=== PATIENT | male | born 1995 | race Caucasian/White ===

== ENCOUNTER 2017-08-23 17:14 | Emergency (ER) | payer BC ==
[2017-08-23 17:29] VITALS: RESP 18
--- NOTE | 2017-08-23 17:53 | ED ---
Chest Pain HPI - General Chief Complaint: Chest Pain Stated Complaint: Ches pain Time Seen by Provider: 08/23/17 17:35 Source: patient Mode of arrival: ambulatory Limitations: no limitations - History of Present Illness Initial Comments: Patient is a 22-year-old male presenting for chest pain. 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 Since that time, he has been having chest pressure that has been constant without radiation or modifying factors. It is not associated with nausea/vomiting/ diarrhea. Pt also denies any prolonged periods of immobility, CA, DVT/PE, estrogen use, or recent surgery. He was advised to come to the ER for further evaluation. He states he also works out daily and that this feels slightly different than a musculoskeletal strain. He also denies any illicit drug use. - Related Data Home Medications Medication Instructions Recorded Confirmed No Known Home Medications [No 08/23/17 08/23/17 Known Home Medications] Allergies Allergy/AdvReac Type Severity Reaction Status Date / Time No Known Allergies Allergy Verified 08/23/17 17:29 Review of Systems ROS Statement: Those systems with pertinent positive or pertinent negative responses have been documented in the HPI. Constitutional: Negative for chills, fatigue and fever. HENT: Negative for congestion. Respiratory: Negative for chest tightness, shortness of breath and wheezing. Negative for cough Cardiovascular: Negative for palpitations. Positive for chest pain Gastrointestinal: Negative for abdominal pain. Negative for abdominal distention , diarrhea, nausea and vomiting. Genitourinary: Negative for dysuria. Musculoskeletal: Negative for back pain, neck pain and neck stiffness. Skin: Negative for color change. Neurological: Negative for dizziness, speech difficulty, weakness and light- headedness. Psychiatric/Behavioral: Negative for agitation and confusion. The patient is not nervous/anxious. ROS Other: All systems not noted in ROS Statement are negative. EKG Findings - EKG Comments: EKG Findings:: EKG shows normal sinus rhythm with a rate of 62 bpm, NE interval 122, QRS 92, QTC 414. There is no significant ST depressions or elevations. Past Medical History Past Medical History: No Reported History History of Any Multi-Drug Resistant Organisms: None Reported Additional Past Surgical History / Comment(s): nasel surg Past Psychological History: No Psychological Hx Reported Smoking Status: Never smoker Past Alcohol Use History: Rare Past Drug Use History: None Reported General Exam - General Exam Comments Initial Comments: Constitutional: Pt is oriented to person, place, and time. Pt appears well- developed and well-nourished. No distress. HENT: Head: Normocephalic and atraumatic. Eyes: EOM are normal. Neck: Normal range of motion. Neck supple. Cardiovascular: Normal rate, regular rhythm, S1 normal, S2 normal and normal heart sounds. Exam reveals no gallop and no friction rub. No murmur heard. Pulmonary/Chest: Effort normal and breath sounds normal. No tachypnea and no bradypnea. No respiratory distress. No wheezes or rales noted. Abdominal: Soft. Bowel sounds are normal. Pt exhibits no shifting dullness, no distension, no pulsatile liver, no fluid wave, no abdominal bruit and no ascites. There is no tenderness. There is no rigidity, no rebound, no guarding, no tenderness at McBurney's point and negative Kasper's sign. Musculoskeletal: Normal range of motion. Neurological: Pt is alert and oriented to person, place, and time. No cranial nerve deficit. Skin: Skin is warm and dry. No rash noted. Pt is not diaphoretic. No erythema. No pallor. Psychiatric: Pt has a normal mood and affect. Pt behavior is normal. Thought content normal. Limitations: no limitations Course Vital Signs 08/23/17 17:25 Temperature 99.0 F Pulse Rate 75 Respiratory 18 Rate Blood Pressure 136/71 O2 Sat by Pulse 100 Oximetry Chest Pain MDM - MDM Lab results showed no evidence of elevated troponin and kidney function was preserved. There is mild elevation of CPK but this is to be suspected as the patient does do a lot of physical exercise. Additionally, chest x-ray showed no evidence of acute pathology and EKG was unremarkable. It was explained that while there does not appear to be an emergent process, the etiology of the symptoms are still unclear but possibly related to muscle strength and may need further workup as an outpatient if symptoms continue. Additionally, d-dimer was not performed because the patient is low risk and was PERC negative. Explained all labs and diagnostic test results and that we will discharge the patient home and patient is to follow up with PCP in 1-2 days and return to the ED if symptoms worsen. Pt is agreeable to plan. Disposition Clinical Impression: Chest pain Disposition: HOME SELF-CARE Condition: Good Instructions: Chest Pain (ED) Is patient prescribed a controlled substance at d/c from ED?: No Referrals: None,Stated [Primary Care Provider] - 1-2 days Time of Disposition: 18:45
[2017-08-23 18:05] LABS: Basophils % (A) 0 %; Eosinophils # (A) 0.2 k/uL (0-0.7); Eosinophils % (A) 2 %; HCT 46.2 % (39.0-53.0); HGB 15.8 gm/dL (13.0-17.5); Lymphocytes # (A) 2.6 k/uL (1.0-4.8); Lymphocytes % (A) 32 %; MCHC 34.2 g/dL (31.0-37.0); MCV 87.8 fL (80.0-100.0); Mean Platelet Volume 7.3; Monocytes # (A) 0.5 k/uL (0-1.0); Monocytes % (A) 6 %; Neutrophils # (A) 4.7 k/uL (1.3-7.7); Neutrophils % (A) 57 %; Platelet Count 208 k/uL (150-450); RBC 5.26 m/uL (4.30-5.90); RDW 12.1 % (11.5-15.5); WBC 8.2 k/uL (3.8-10.6)
[2017-08-23 18:15] LABS: ALT 37 U/L (21-72); AST 31 U/L (17-59); Albumin 4.6 g/dL (3.5-5.0); Alkaline Phosphatase 86 U/L (38-126); Anion Gap 16 mmol/L; Blood Urea Nitrogen 23 mg/dL (9-20); Calcium 9.3 mg/dL (8.4-10.2); Carbon Dioxide 25 mmol/L (22-30); Chloride 105 mmol/L (98-107); Creatine Kinase 232 U/L (55-170); Glucose 94 mg/dL (74-99); Magnesium 2.1 mg/dL (1.6-2.3); Potassium 4.3 mmol/L (3.5-5.1); Sodium 146 mmol/L (137-145); Total Bilirubin 0.3 mg/dL (0.2-1.3); Total Protein 7.2 g/dL (6.3-8.2)
--- NOTE | 2017-08-23 18:15 | XR ---
EXAMINATION TYPE: XR chest 2V DATE OF EXAM: 08/23/2017 COMPARISON: None HISTORY: 22-year-old male with chest pain TECHNIQUE: PA and lateral views FINDINGS: Heart is normal size. Aorta and pulmonary vasculature within normal limits. No consolidation or pleur al effusion. IMPRESSION: No acute cardiopulmonary process.
[2017-08-23 19:15] VITALS: BP 128/67; PULSE 64; TEMP 98
== END 2017-08-23 19:06 | disposition home or self-care (01) ==
LOC: EC 17:14
DX: R07.9 Chest pain, unspecified (principal); R74.8 Abnormal levels of other serum enzymes
CPT/HCPCS: 36415; 71046; 80053; 82550; 83735; 84484; 85025; 93005; 99285

== ENCOUNTER 2024-08-31 18:02 | Observation (INO) | payer BC ==
--- NOTE | 2024-08-31 19:09 | ED ---
General Adult HPI - General Chief complaint: Neuro Symptoms/Deficit Stated complaint: Facial/L arm numbness Time Seen by Provider: 08/31/24 18:37 Source: patient Mode of arrival: ambulatory Limitations: no limitations - History of Present Illness Initial comments: Patient is a previously healthy 29-year-old male presenting today for left-sided facial numbness and left arm numbness. Symptoms started on Friday. He had associated headache at the time that has since resolved. Symptoms began with left-sided facial numbness and progressed to include his left arm yesterday. 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 Yesterday he went to his chiropractor's office who did neck adjustments and patient had no change in his symptoms. His headache has since resolved. He also endorses intermittent dizziness. He states he had similar symptoms about 1 year ago, had a CT brain performed at [facility], was ultimately negative and he was discharged home. His symptoms resolved spontaneously. He never followed up with a neurologist and has not had an MRI performed. Patient denies vision changes, slurred speech, other focal numbness or weakness, current headache or dizziness, chest pain, shortness of breath, fevers or chills. States his neck does feel "stiff". No family history of CVAs, MS or ACS. Patient has no history of similar. He is currently on testosterone supplementation. - Related Data Home Medications Medication Instructions Recorded Confirmed No Known Home Medications 08/23/17 08/23/17 Allergies Allergy/AdvReac Type Severity Reaction Status Date / Time No Known Allergies Allergy Verified 08/31/24 18:08 Review of Systems ROS Statement: Those systems with pertinent positive or pertinent negative responses have been documented in the HPI. ROS Other: All systems not noted in ROS Statement are negative. Past Medical History Past Medical History: No Reported History History of Any Multi-Drug Resistant Organisms: None Reported Additional Past Surgical History / Comment(s): nasel surg Past Psychological History: No Psychological Hx Reported Past Alcohol Use History: Rare Past Drug Use History: None Reported General Exam - General Exam Comments Initial Comments: PE: CONSTITUTIONAL: No apparent distress, well appearing SKIN: Warm, dry, no jaundice, hives or petechiae EYES: Pupils are equally round, extraocular movements intact without nystagmus, clear conjunctiva, non-icteric sclera HENT: Normocephalic, atraumatic, moist mucus membranes, oropharynx clear without exudates, no tympanic erythema, TMs are pearly vasquez without effusions NECK: , Full range of motion, normal appearance PULMONARY: Clear to auscultation without wheezes, rhonchi, or rales, normal excursion, no accessory muscle use and no stridor CARDIOVASCULAR: Regular rate, rhythm, normal S1 and S2. No appreciated murmurs, rubs or gallops. Strong radial pulses with intact distal perfusion. No lower extremity edema GASTROINTESTINAL: Soft, active bowel sounds throughout, non-tender, non-diste nded, no palpable masses, no rebound or guarding. No hepatosplenomegaly GENITOURINARY: MUSCULOSKELETAL: Extremities have no gross deformity, no edema, redness, or swelling. NEUROLOGIC:_a/o x 3, GCS 15, normal mentation and speech. Moves all extremities x 4 without motor or sensory deficit, cranial nerves: II (visual iglesias without defects), III, IV and (extraocular movements are intact, pupils are equal with normal reaction to light), V jaw opening, decree sensation to light touch of the 2nd and 3rd branches of the 5th cranial nerve, VII (no facial droop forehead wrinkling intact), IX and X (normal palate movement, midline uvula, normal voice), XI (symmetrical shoulder shrug and lateral head rotation against resistance), XII (midline tongue protrusion). Questionable slight weakness in LUE compared to RUE, thought motor strength is 5/5 in all extremities. No abnormal movements. Normal muscle tone. Decreased sensation to light touch of the left upper extremity, equal sensation in the bilateral lower extremities. No cerebellar signs ([id number], [id number], and rapid alternating movements are normal) PSYCHIATRIC:_normal mood and affect, thought process is clear and linear Limitations: no limitations Course Vital Signs 08/31/24 08/31/24 18:05 20:57 Temperature 98.1 F Pulse Rate 106 H 69 Respiratory 18 18 Rate Blood Pressure 148/81 134/90 O2 Sat by Pulse 98 98 Oximetry EKG Findings - EKG Comments: EKG Findings:: Sinus rhythm, rate 84 bpm intervals within acceptable limits, normal axis, no ST elevations or depressions no arrhythmia Medical Decision Making - Medical Decision Making Was pt. sent in by a medical professional or institution (, PA, SENIOR ENVIRONMENTAL ENGINEER, urgent care, hospital, or residential...) When possible be specific @ -No Did you speak to anyone other than the patient for history (EMS, parent, family, police, friend...)? What history was obtained from this source @ -No Did you review nursing and triage notes (agree or disagree)? Why? @ -I reviewed and agree with nursing and triage notes Were old charts reviewed (outside hosp., previous admission, EMS record, old EKG, old radiological studies, urgent care reports/EKG's, residential records)? Report findings @ -Medical records reviewed-reviewed CT brain performed in 2019 showed no acute process. At that time was done for headache and dizziness Differential Diagnosis (chest pain, altered mental status, abdominal pain women, abdominal pain men, vaginal bleeding, weakness, fever, dyspnea, syncope, headache, dizziness, GI bleed, back pain, seizure, CVA, palpatations, mental health, musculoskeletal)? @Differential CVA Ischemic stroke, hemorrhagic stroke, brain tumor, MS, atypical migraine, Wernicke's encephalopathy, seizure, multiple sclerosis, meningitis, encephalitis, hypoglycemia, Guillain-Denise, electrolytes disturbance, myasthenia gravis.... This is not meant to be an all-inclusive list EKG interpreted by me (3pts min.). @ -As above X-rays interpreted by me (1pt min.). @ -[Personally reviewed chest x-ray see no evidence of cardiomegaly, consolidations or other acute process, agree with radiologist interpretation CT interpreted by me (1pt min.). @Personally reviewed CT brain I see no evidence of hemorrhage or mass effect, I agree with radiologist interpretation U/S interpreted by me (1pt. min.). @ -None done What testing was considered but not performed or refused? (CT, X-rays, U/S, labs)? Why? @CTA was considered however patient declined CTA, hoping to avoid excessive radiation, as patient symptoms began prior to chiropractic adjustments I do not suspect arterial injury at this time, and symptoms have been ongoing for greater than 24 hours, I feel after CT brain if negative, MRI would be appropriate What meds were considered but not given or refused? Why? @ -None Did you discuss the management of the patient with other professionals (professionals i.e. , PA, SENIOR ENVIRONMENTAL ENGINEER, lab, RT, psych nurse, social services director, condenser cleaner, teacher, chief legal officer, registered nurse hh case manager)? Give summary @ -No Was smoking cessation discussed for >3mins.? @ -No Was critical care preformed (if so, how long)? @ -No Were there social determinants of health that impacted care today? How? (Homel essness, low income, unemployed, alcoholism, drug addiction, transportation, low edu. Level, literacy, decrease access to med. care, custodial, rehab)? @ -No Was there de-escalation of care discussed even if they declined (Discuss DNR or withdrawal of care, Hospice)? @ -No What co-morbidities impacted this encounter? (DM, HTN, Smoking, COPD, CAD, Cancer, CVA, ARF, Chemo, Hep., AIDS, mental health diagnosis, sleep apnea, morbid obesity)? @ -None Was patient admitted / discharged? Hospital course, mention meds given and route, prescriptions, significant lab abnormalities, going to OR and other [facility] info. @ -Admission- patient is a pleasant 29-year-old woman presenting today for 2 days of left-sided facial numbness and left upper extremity numbness. Patient only tachycardic on arrival, mildly hypertensive with blood pressure 148/81, otherwise vital signs within acceptable limits. Exam significant for decreased sensation to light touch of the 2nd and 3rd branches of the 5th cranial nerve, no facial droop appreciated, sensation is intact along the first branch, slight decrease sensation in the left upper extremity, questionable slight decrease in strength in the LUE. Discussed with patient plan for CT brain, consider CTA however patient requests not to have CTA performed as he has had multiple CTs in the past and he would prefer an MRI. I discussed with him that MRI is not imme diately available in the ER however should start with a CT brain to rule out hemorrhage or mass effect and could proceed to MRI as indicated. Patient agreeable plan of care. Comprehensive labs chest x-ray, CT brain obtained ordered. Labs and imaging reviewed. Grossly within normal limits. Abnormal values not concerning for acute pathology related to presenting complaint. Reflect hemoconcentration but no acute process. IV fluids ordered .CT brain negative for acute process. Due to persistent symptoms, will admit for MRI and neurology evaluation. Pt agreeable with POC. Case discussed with ADDISON Robertson, kindly accepts pt for admission. Undiagnosed new problem with uncertain prognosis? @ -No Drug Therapy requiring intensive monitoring for toxicity (Heparin, Nitro, Insulin, Cardizem)? @ -No Were any procedures done? @ -No Diagnosis/symptom? Left face numbness, left upper extremity numbness Acute, or Chronic, or Acute on Chronic? Acute Uncomplicated (without systemic symptoms) or Complicated (systemic symptoms)? @Complicated Side effects of treatment? @ -No Exacerbation, Progression, or Severe Exacerbation? @ -No Poses a threat to life or bodily function? How? (Chest pain, USA, CA, pneumonia, PE, COPD, DKA, ARF, appy, cholecystitis, CVA, Diverticulitis, Homicidal, Suicidal, threat to staff... and all critical care pts) @ -Potentially secondary to emergent etiology such as recent CVA or new onset MS - Lab Data Result diagrams: 08/31/24 19:46 08/31/24 19:46 Lab Results 08/31/24 08/31/24 08/31/24 Range/Units 19:46 19:46 19:46 WBC 10.25 H (4.50-10.00) 10*3/uL RBC 5.74 H (4.40-5.60) 10*6/uL Hgb 18.0 H (13.0-17.0) g/dL Hct 51.1 H (39.6-50.0) % MCV 89.0 (80.0-97.0) fL MCH 31.4 (27.0-32.0) pg MCHC 35.2 (32.0-37.0) g/dL Plt Count 243 (140-440) 10*3/uL MPV 10.0 (9.5-12.2) fL Immature Gran % (Auto) 0.2 % Neutrophils % 62.1 % Lymphocytes % 27.7 % Monocytes % 8.7 % Eosinophils % 0.7 % Basophils % 0.6 % Immature Gran # 0.02 (0.00-0.04) 10*3/uL Neutrophils # 6.37 (1.80-7.70) 10*3/uL Lymphocytes # 2.84 (0.90-5.00) 10*3/uL Monocytes # 0.89 (0.20-1.00) 10*3/uL Eosinophils # 0.07 (0.04-0.35) 10*3/uL Basophils # 0.06 (0.00-0.10) 10*3/uL PT 11.0 (10.0-12.5) sec INR 1.0 (<1.2) APTT 28.1 (22.0-30.0) sec Sodium 139 (137-145) mmol/L Potassium 4.3 (3.5-5.1) mmol/L Chloride 101 (98-107) mmol/L Carbon Dioxide 25 (22-30) mmol/L Anion Gap 13 mmol/L BUN 18 (9-20) mg/dL Creatinine 0.96 (0.66-1.25) mg/dL Est GFR (CKD-EPI)AfAm >90 (>60 ml/min/1.73 sqM) Est GFR (CKD-EPI)NonAf >90 (>60 ml/min/1.73 sqM) Glucose 82 (74-99) mg/dL Calcium 9.6 (8.4-10.2) mg/dL Total Bilirubin 0.5 (0.2-1.3) mg/dL AST 38 (17-59) U/L ALT 45 (4-49) U/L Alkaline Phosphatase 63 (38-126) U/L Creatine Kinase 198 H (55-170) U/L Troponin I (0.000-0.034) ng/mL Total Protein 7.4 (6.3-8.2) g/dL Albumin 4.4 (3.5-5.0) g/dL 08/31/24 Range/Units 19:46 WBC (4.50-10.00) 10*3/uL RBC (4.40-5.60) 10*6/uL Hgb (13.0-17.0) g/dL Hct (39.6-50.0) % MCV (80.0-97.0) fL MCH (27.0-32.0) pg MCHC (32.0-37.0) g/dL Plt Count (140-440) 10*3/uL MPV (9.5-12.2) fL Immature Gran % (Auto) % Neutrophils % % Lymphocytes % % Monocytes % % Eosinophils % % Basophils % % Immature Gran # (0.00-0.04) 10*3/uL Neutrophils # (1.80-7.70) 10*3/uL Lymphocytes # (0.90-5.00) 10*3/uL Monocytes # (0.20-1.00) 10*3/uL Eosinophils # (0.04-0.35) 10*3/uL Basophils # (0.00-0.10) 10*3/uL PT (10.0-12.5) sec INR (<1.2) APTT (22.0-30.0) sec Sodium (137-145) mmol/L Potassium (3.5-5.1) mmol/L Chloride (98-107) mmol/L Carbon Dioxide (22-30) mmol/L Anion Gap mmol/L BUN (9-20) mg/dL Creatinine (0.66-1.25) mg/dL Est GFR (CKD-EPI)AfAm (>60 ml/min/1.73 sqM) Est GFR (CKD-EPI)NonAf (>60 ml/min/1.73 sqM) Glucose (74-99) mg/dL Calcium (8.4-10.2) mg/dL Total Bilirubin (0.2-1.3) mg/dL AST (17-59) U/L ALT (4-49) U/L Alkaline Phosphatase (38-126) U/L Creatine Kinase (55-170) U/L Troponin I <0.012 (0.000-0.034) ng/mL Total Protein (6.3-8.2) g/dL Albumin (3.5-5.0) g/dL Disposition Clinical Impression: Left sided numbness Disposition[facility] Condition: Good Referrals: Nonstaff,Physician [Primary Care Provider] - 1-2 days
--- NOTE | 2024-08-31 19:38 | CT ---
EXAMINATION TYPE: CT brain wo con DATE OF EXAM: 08/31/2024 7:28 PM COMPARISON: None. CLINICAL INDICATION: Male, 29 years old with history of left facial numb. left arm numbness x 2 days, left sided facial numbness TECHNIQUE: CT of the brain is performed utilizing 3 mm thick sections through the posterior fossa and 3 mm thick sections through the remaining calvarium. Study is performed within 24 hours of arrival to the hospital. Contrast used: mL of , (none if empty) CT DLP: 1172.4 mGycm, Automated exposure control for dose reduction was used. FINDINGS: No abnormal hyperdensity is present to suggest an acute intracranial hemorrhage. No mass lesion is evident. No acute infarcts are evident. Ventricles and sulci are appropriate for the patient age. Paranasal sinuses and mastoid air cells within the [id number] are clear. IMPRESSION: 1. No acute intracranial process. Follow up MRI can be performed as clinically indicated. [facility], Workstation: [facility], 08/31/2024 7:36 PM
[2024-08-31 19:59] LABS: Basophils # (A) 0.06 10*3/uL (0.00-0.10); Basophils % (A) 0.6 %; Eosinophils # (A) 0.07 10*3/uL (0.04-0.35); Eosinophils % (A) 0.7 %; HCT 51.1 % (39.6-50.0); Lymphocytes # (A) 2.84 10*3/uL (0.90-5.00); Lymphocytes % (A) 27.7 %; MCH 31.4 pg (27.0-32.0); MCHC 35.2 g/dL (32.0-37.0); Monocytes # (A) 0.89 10*3/uL (0.20-1.00); Monocytes % (A) 8.7 %; Neutrophils # (A) 6.37 10*3/uL (1.80-7.70); Neutrophils % (A) 62.1 %; Platelet Count 243 10*3/uL (140-440); RBC 5.74 10*6/uL (4.40-5.60); RDW 12.3 % (11.5-14.5); WBC 10.25 10*3/uL (4.50-10.00)
--- NOTE | 2024-08-31 20:14 | XR ---
EXAMINATION TYPE: XR chest 2V DATE OF EXAM: 08/31/2024 8:06 PM COMPARISON: 08/23/2017 CLINICAL INDICATION: Male, 29 years old with history of stroke eval, TECHNIQUE: XR chest 2V view(s) obtained. FINDINGS: The heart size is normal. The pulmonary vasculature is normal. The lungs are clear. IMPRESSION: 1. No acute pulmonary process. [facility], Workstation: [facility], 08/31/2024 8:12 PM
[2024-08-31 20:18] LABS: Glucose 82 mg/dL (74-99); Partial Thromboplastin Time 28.1 sec (22.0-30.0)
[2024-08-31 20:19] LABS: ALT 45 U/L (4-49); AST 38 U/L (17-59); African American GFR (CKD) >90 (>60 ml/min/1.73 sqM); Albumin 4.4 g/dL (3.5-5.0); Alkaline Phosphatase 63 U/L (38-126); Anion Gap 13 mmol/L; Blood Urea Nitrogen 18 mg/dL (9-20); Calcium 9.6 mg/dL (8.4-10.2); Carbon Dioxide 25 mmol/L (22-30); Chloride 101 mmol/L (98-107); Creatine Kinase 198 U/L (55-170); Non-African American GFR(CKD) >90 (>60 ml/min/1.73 sqM); Potassium 4.3 mmol/L (3.5-5.1); Sodium 139 mmol/L (137-145); Total Bilirubin 0.5 mg/dL (0.2-1.3); Total Protein 7.4 g/dL (6.3-8.2)
[2024-08-31] MEDS ORDERED: ONDANSETRON 4 MG/2 ML VIAL IVP PRN (21:49)
[2024-08-31] MEDS ORDERED: MAG HYDROX/AL HYDROX/SIMETH 30 ML CUP PO PRN (21:49)
[2024-08-31] MEDS ORDERED: ACETAMINOPHEN TAB 325 MG TAB PO PRN (21:49)
[2024-08-31] MEDS ORDERED: NALOXONE 0.4 MG/ML 1 ML VIAL IV PRN (21:49)
[2024-08-31] MEDS ORDERED: traMADol 50 MG TAB PO PRN (21:49)
[2024-08-31] MEDS ORDERED: MELATONIN 3 MG TABLET PO PRN (21:49)
[2024-08-31] MEDS: SODIUM CHLORIDE 0.9% 1,000 ML IV SCH (22:19)
[2024-09-01] MEDS: FAMOTIDINE 20 MG TAB PO SCH (08:54)
--- NOTE | 2024-09-01 12:51 | P.HPIM ---
History of Present Illness Patient is a pleasant 29-year-old male came in with complaints of left lower facial numbness and left arm numbness unknown whether patient has some weakness patient had issues with the coordination in the left hand as well as vp organizational development stre ngth problem in the left. CT of the head that was done at [facility] did not show any significant abnormality. Patient denied any family history of premature coronary artery disease or carotid artery disease or prevascular disease in the family patient has a history of sciatica because of which he has some chronic numbness and tingling in lower extremities. Brain CT and chest x- ray are essentially within normal limits. Patient symptoms started on Friday resolved at this time. Patient still has on and off symptoms. Patient also has history of peripheral vertigo REVIEW OF SYSTEMS: All other systems are negative except those mentioned in the HPI PHYSICAL EXAMINATION: GENERAL: The patient is alert and oriented x3, not in any acute distress. Well developed, well nourished. HEENT: Pupils are round and equally reacting to light. EOMI. No scleral icterus. No conjunctival pallor. Normocephalic, atraumatic. No pharyngeal erythema. No thyromegaly. CARDIOVASCULAR: S1 and S2 present. No murmurs, rubs, or gallops. PULMONARY: Chest is clear to auscultation, no wheezing or crackles. ABDOMEN: Soft, nontender, nondistended, normoactive bowel sounds. No palpable organomegaly. MUSCULOSKELETAL: No joint swelling or deformity. EXTREMITIES: No cyanosis, clubbing, or pedal edema. NEUROLOGICAL: Gross neurological examination did not reveal any focal deficits. SKIN: No rashes. Assessment and plan -Symptoms of facial and left arm tingling numbness: Clinically cannot rule out TIA/stroke. Patient will undergo MRI to rule out any stroke. Will also obtain a lipid panel - Elevated hemoglobin/hematocrit secondary to hemoconcentration from dehydration or testosterone injections -Peripheral vertigo presently not symptomatic DVT prophylaxis: Early ambulation Past Medical History Past Medical History: No Reported History History of Any Multi-Drug Resistant Organisms: None Reported Additional Past Surgical History / Comment(s): nasel surg Past Psychological History: No Psychological Hx Reported Past Alcohol Use History: Rare Past Drug Use History: None Reported Medications and Allergies Home Medications Medication Instructions Recorded Confirmed Type No Known Home Medications 08/23/17 09/01/24 History Allergies Allergy/AdvReac Type Severity Reaction Status Date / Time No Known Allergies Allergy Verified 09/01/24 09:14 Physical Exam Vitals: Vital Signs Temp Pulse Resp BP Pulse Ox 09/01/24 06:16 74 16 120/84 99 09/01/24 02:00 70 18 144/66 99 08/31/24 20:57 69 18 134/90 98 08/31/24 18:05 98.1 F 106 H 18 148/81 98 Intake and Output 08/31/24 09/01/24 09/01/24 22:59 06:59 14:59 Other: Weight 95.254 kg Results CBC & Chem 7: 08/31/24 19:46 08/31/24 19:46 Labs: Abnormal Lab Results - Last 24 Hours (Table) 08/31/24 08/31/24 Range/Units 19:46 19:46 WBC 10.25 H (4.50-10.00) 10*3/uL RBC 5.74 H (4.40-5.60) 10*6/uL Hgb 18.0 H (13.0-17.0) g/dL Hct 51.1 H (39.6-50.0) % Creatine Kinase 198 H (55-170) U/L
--- NOTE | 2024-09-01 16:57 | P.CNNES ---
History of Present Illness Consult date: 09/01/24 Requesting physician: Yuliet Schultz Reason for Consult: left sided weakness History of Present Illness: This is a 29-year-old gentleman who presents emergency department because of left facial numbness with left upper extremity weakness predominantly in the hand. Patient is accompanied with his . According the patient his symptoms began this past Friday around 6 PM and he had left facial numbness around the cheek region and he also had a mild headache over the left frontal area and he could not describe the headache but stated it was mild and it was 3/10 and could not tell me if the headache started first or the facial numbness started first. Patient took Motrin then he slept then woke up the next day and he was doing well then again he experienced the left facial numbness without any headache. He also noticed that his left hand fine motor movement was off. Then this seems his symptoms resolved then again he had symptoms again yesterday so he came to the hospital. Patient has chronic ongoing dizziness for the last 8 years and he followed up with ENT as an outpatient. Patient denies any history of stroke, TIA, multiple sclerosis. Denies currently any numbness or weakness. He feels back to baseline. Denies any history of seizure. Denies any family history of stroke or seizure or multiple sclerosis. He denies being on any antiplatelet or anticoagulation. He does have a history of nicotine use and he chews tobacco but it seems that he went to to the nonnicotine route. Denies any illicit drug use or alcohol use. He does take testosterone and it seems that he has low testosterone level. 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 Some of the workup during this hospital visit consisted of: Hemoglobin is 18.0 and hematocrit is 51.1 I reviewed the rest of the lab workup CT of the head is reported as no acute intracranial process. I personally reviewed the CT and agree with the report. Review of Systems As per HPI. Past Medical History Past Medical History: No Reported History History of Any Multi-Drug Resistant Organisms: None Reported Additional Past Surgical History / Comment(s): nasel surg Past Psychological History: No Psychological Hx Reported Past Alcohol Use History: Rare Past Drug Use History: None Reported Medications and Allergies Home Medications Medication Instructions Recorded Confirmed Type No Known Home Medications 08/23/17 09/01/24 History Allergies Allergy/AdvReac Type Severity Reaction Status Date / Time No Known Allergies Allergy Verified 09/01/24 09:14 Physical Examination - Vital Signs Vital Signs: Vital Signs Temp Pulse Resp BP Pulse Ox 09/01/24 13:49 64 16 145/76 99 09/01/24 06:16 74 16 120/84 99 09/01/24 02:00 70 18 144/66 99 08/31/24 20:57 69 18 134/90 98 08/31/24 18:05 98.1 F 106 H 18 148/81 98 GENERAL: The patient is lying in bed and is not in acute distress. NEUROLOGICAL: Higher mental function: The patient is awake, alert, oriented to self, place and time. Patient is following commands. No aphasia and no neglect. Cranial nerves: The pupils are round, equal and reactive to light and accommodation. Visual iglesias are full to confrontation throughout. Extraocular movement is intact no nystagmus is noted. Facial sensation is normal to touch throughout. The facial strength is normal throughout. Hearing is normal bilaterally to hand rub. Tongue is midline and moved [id number] without any difficulty. No dysarthria is noted. Shoulder shrug is normal bilaterally. Motor: The strength is 5 over 5 throughout. Normal tone and bulk. Cerebellum: Normal finger to nose heel to owens bilaterally. Sensation: Sensation is normal to touch throughout. Reflexes (right/left): 2+ throughout. Plantars are downgoing bilaterally. Results - Laboratory Findings CBC and BMP: 08/31/24 19:46 08/31/24 19:46 Abnormal Lab Findings: Abnormal Labs 08/31/24 08/31/24 19:46 19:46 WBC 10.25 H RBC 5.74 H Hgb 18.0 H Hct 51.1 H Creatine Kinase 198 H Assessment and Plan Assessment: This is a 29-year-old gentleman who presents emergency department because of left facial numbness, with some issues with dexterity of left hand that is intermittent since this past Friday. Intermittent left facial numbness with some issues with dexterity of left hand: Unsure exact etiology. Rule out TIA vs Multiple Sclerosis vs ?focal seizure without loss of consciousness. CT head is unremarkable. 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 History of Nicotine use Plan: MRI of the brain with and without is ordered by the ED team and I ordered MRI of the cervical spine I also ordered routine EEG, 2d echo as well as carotid duplex Ordered TSH, vitamin B12, folate, JONNY, hemoglobin A1c I started the patient on aspirin 81 mg daily as well as Lipitor 20 mg nightly for secondary stroke prophylaxis Continue neurochecks Cardiac monitoring No need for PT, OT and ENGINEERING INTERN since patient currently does not have any focal deficit Will defer the rest of the medical management to primary other specialist For DVT prophylaxis the patient is ambulatory. Plan discussed with the patient and his was at bedside Thank you for the consultation. Time with Patient: Greater than 30
--- NOTE | 2024-09-01 18:39 | US ---
EXAMINATION TYPE: US carotid duplex BILAT DATE OF EXAM: 09/01/2024 COMPARISON: NONE CLINICAL INDICATION: Male, 29 years old with history of left facial numbness; lefyt sided numbness an d dizziness, no h/o stroke Additional History: .... TECHNIQUE: Grayscale, color Doppler and spectral Doppler evaluation of the bilateral carotid systems and vertebral arteries. Indirect Doppler criteria was utilized. FINDINGS: EXAM MEASUREMENTS: RIGHT: Peak Systolic Velocity (PSV) cm/sec ----- Right CCA: 138.0 ----- Right ICA: 79.7 ----- Right ECA: 155.0 ICA/CCA ratio: 0.6 RIGHT: End Diastole cm/sec ----- Right CCA: 19.0 ----- Right ICA: 29.8 ----- Right ECA: 9.8 LEFT: Peak Systolic Velocity (PSV) cm/sec ----- Left CCA: 113.0 ----- Left ICA: 79.9 ----- Left ECA: 150.0 ICA/CCA ratio: 0.7 LEFT: End Diastole cm/sec ----- Left CCA: 20.8 ----- Left ICA: 18.2 ----- Left ECA: 16.8 VERTEBRALS (direction of flow): Right Vertebral: Antegrade Left Vertebral: Antegrade Rhythm: Normal BUDGET COUNSELOR NOTES: Mild homogeneous plaque with no stenosis seen Color Doppler imaging shows patency with blood flow throughout the carotid artery. Spectral waveforms are within normal limits. IMPRESSION: Right: No hemodynamically significant stenosis. Left: No hemodynamically significant stenosis. Criteria for Assigning % of Stenosis / Diameter reduction (Estimation based on the indirect measurements of the internal carotid artery velocities (ICA PSV). 1. Normal (no stenosis)=ICA PSV < 180 cm/s: ratio < 2.0: ICA EDV<40 cm/s. 2. Less than 50% stenosis=ICA PSV < 180 cm/s: ratio < 2.0: ICA EDV<40 cm/s. 3. 50 to 69% stenosis=ICA PSV of 180 to 230 cm/s: ration 2.0 ? 4.0: ICA EDV 40-100 cm/s. PSV 125-180 cm/sec and ICA/CCA PSV Ratio ? 2.0 is also consistent with 50-69% stenosis 4. Greater than 70% stenosis to near occlusion= ICA PSV > 230 cm/s: ratio > 4.0: ICA EDV > 100 cm/s. 5. Near occlusion= ICA PSV velocities may be low or undetectable: variable ratio and ICA EDV. 6. Total occlusion=unable to detect flow. [facility], , 09/01/2024 6:37 PM
[2024-09-01] MEDS: ASPIRIN 81 MG PO SCH (20:21)
[2024-09-01] MEDS: ATORVASTATIN 20 MG TAB PO SCH (20:21)
[2024-09-02] MEDS: CALCIUM CARBONATE 500 MG CHEWABLE PO PRN (02:15)
--- NOTE | 2024-09-02 03:22 | EEG ---
ELECTROENCEPHALOGRAM REPORT EEG Report. CLINICAL HISTORY: This is a 29-year-old gentleman with intermittent left facial numbness. The video EEG is obtained to evaluate for seizure epileptiform activity. RELEVANT MEDICATION: The patient is not on any antiseizure medication. EEG TYPE: Routine 21 channel EEG with video using the 10/20 electrode system. DESCRIPTION: Wakefulness is only obtained. During awake state, posterior-dominant rhythm consists of [id number] voltage of 10-10.5 hertz activity that is well modulated, well sustained. There is no physiological stage 2 sleep architecture. There is no focal slowing. Interictal and ictal is none. ACTIVATION PROCEDURE: Photic stimulation did not evoke a posterior driving response. There is no abnormality during the photic stimulation. Hyperventilation is not performed. CLINICAL INTERPRETATION: This is a normal routine EEG during awake state. There is no focal slowing, epileptiform discharge, or seizure on the EEG. A normal routine EEG. Does not rule out underlying epilepsy. Clinical correlation is recommended. MMNISHANT / BINN: [id number] /
[2024-09-02 08:56] LABS: Chol/HDL Ratio 3.93 Ratio; LDL Cholesterol,Calculated 64.2 mg/dL (0.0-131.0)
--- NOTE | 2024-09-02 10:18 | CA ---
Transthoracic Echo Report Name: Felipe An Age: 29 Gender: M : 1995 Exam Date: 09/01/2024 17:23 Exam Location: [facility] Ht (in): 69 Wt (lb): 210 Ordering Physician: Jeffry Bates MD Attending/Referring Phys: Hvac Installer Grace Stein RDCS Procedure CPT: Indications: CVA Cardiac Hx: Technical Quality: Good Contrast 1: Agitated Saline Total Dose (mL): 10 Contrast 2: Total Dose (mL): MEASUREMENTS (Male / Female) Normal Values 2D ECHO LV Diastolic Diameter PLAX 4.8 cm 4.2 - 5.9 / 3.9 - 5.3 cm LV Systolic Diameter PLAX 3.9 cm IVS Diastolic Thickness 1.2 cm 0.6 - 1.0 / 0.6 - 0.9 cm LVPW Diastolic Thickness 1.3 cm 0.6 - 1.0 / 0.6 - 0.9 cm LV Relative Wall Thickness 0.5 RV Internal Dim ED PLAX 3.8 cm LA Systolic Diameter LX 4.2 cm 3.0 - 4.0 / 2.7 - 3.8 cm LV Diastolic Volume MOD 4C 160.7 cm??? LV Systolic Volume MOD 4C 63.1 cm??? LV Ejection Fraction MOD 4C 60.7 % LV Cardiac Index MOD 4C 3265.7 cm???/min???m??? LV Diastolic Length 4C 9.5 cm LV Systolic Length 4C 7.2 cm LV Diastolic Volume MOD 2C 153.8 cm??? LV Systolic Volume MOD 2C 61.8 cm??? LV Ejection Fraction MOD 2C 59.8 % LV Cardiac Index MOD 2C 3080.7 cm???/min???m??? LV Diastolic Length 2C 9.5 cm LV Systolic Length 2C 7.3 cm LA Volume 67.9 cm??? 18 - 58 / 22 - 52 cm??? LA Volume Index 31.2 cm???/m??? 16 - 28 cm???/m??? M-MODE Aortic Root Diameter MM 3.8 cm AV Cusp Separation MM 2.3 cm DOPPLER AV Peak Velocity 150.4 cm/s AV Peak Gradient 9.1 mmHg MV Area PHT 3.8 cm??? Mitral E Point Velocity 97.1 cm/s Mitral A Point Velocity 69.1 cm/s Mitral E to A Ratio 1.4 MV Deceleration Time 197.7 ms TR Peak Velocity 218.1 cm/s TR Peak Gradient 19.0 mmHg Right Ventricular Systolic Press 24.0 mmHg FINDINGS Left Ventricle Left ventricular ejection fraction is estimated at 55-60 %. Left ventricular cavity size normal. Mildly increased septal wall thickness. Normal left ventricular wall motion. Right Ventricle Mild right ventricular dilatation. Right ventricular systolic pressure within normal limits. Right Atrium Normal right atrial size. Cannot exclude a small shunt based on agitated saline bubble study for right to left shunt. Left Atrium Mildly increased left atrial diameter. Mildly increased left atrial volume. No left atrial thrombus or mass present. Mitral Valve Structurally normal mitral valve. No mitral stenosis, regurgitation or prolapse. Aortic Valve Trileaflet aortic valve. No aortic valve stenosis or regurgitation. Tricuspid Valve Structurally normal tricuspid valve. Trace to mild tricuspid regurgitation. Pulmonic Valve Structurally normal pulmonic valve. No pulmonic regurgitation. Pericardium No pericardial effusion. Aorta Mild aortic dilatation at the level of the sinuses of valsalva 38 mm CONCLUSIONS Normal LV size and systolic function. Mild borderline concentric LVH. No significant abnormality on the Doppler exam. No pulmonary hypertension. Cannot exclude a small shunt [id number] based on bubble study Previewed by: Dr. Pablo Soto MD (Electronically Signed) Final Date: 02 Sep 2024 10:18
--- NOTE | 2024-09-02 14:09 | P.PN ---
Subjective Progress Note Date: 09/02/24 On follow-up with the patient and he feels he is doing better no new neurological issues. Patient is concerned about getting gadolinium since he was reading online that it can cause some kidney issues. Objective - Vital Signs Vital signs: Vital Signs Temp 98.8 F 09/02/24 07:00 Pulse 82 09/02/24 07:00 Resp 15 09/02/24 07:00 BP 130/79 09/02/24 07:00 Pulse Ox 99 09/02/24 07:00 FiO2 Intake & Output 09/01/24 09/02/24 09/02/24 18:59 06:59 18:59 Weight 95.254 kg Other: # Voids 1 - Exam GENERAL: The patient is lying in bed and is not in acute distress. NEUROLOGICAL: Higher mental function: The patient is awake, alert, oriented to self, place and time. Patient is following commands. No aphasia and no neglect. Cranial nerves: The pupils are round, equal and reactive to light and accommodation. Visual iglesias are full to confrontation throughout. Extraocular movement is intact no nystagmus is noted. Facial sensation is normal to touch throughout. The facial strength is normal throughout. Hearing is normal bilaterally to hand rub. Tongue is midline and moved [id number] without any difficulty. No dysarthria is noted. Shoulder shrug is normal bilaterally. Motor: The strength is 5 over 5 throughout. Normal tone and bulk. Cerebellum: Normal finger to nose heel to owens bilaterally. Sensation: Sensation is normal to touch throughout. Reflexes (right/left): 2+ throughout. Plantars are downgoing bilaterally. Some of the workup during this hospital visit consisted of: Hemoglobin is 18.0 and hematocrit is 51.1 I reviewed the rest of the lab workup JONNY is negative TSH is 2.610 [address] is 5.2. CT of the head is reported as no acute intracranial process. I personally reviewed the CT and agree with the report. Routine EEG: Normal. 2D echo: Ventricular size and systolic function. Mild borderline concentric left ventricle hypertrophy. Cannot exclude a small shunt [id number] based on bubble study Carotid duplex is no hemodynamically significant stenosis bilaterally. - Labs CBC & Chem 7: 08/31/24 19:46 08/31/24 19:46 Labs: Abnormal Lab Results - Last 24 Hours (Table) 08/31/24 Range/Units 19:46 HDL Cholesterol 30.80 L (40.00-60.00) mg/dL Assessment and Plan Assessment: This is a 29-year-old gentleman who presents emergency department because of left facial numbness, with some issues with dexterity of left hand that is intermittent since this past Friday. Intermittent left facial numbness with some issues with dexterity of left hand: Unsure exact etiology. Rule out TIA vs Multiple Sclerosis. EEG is normal. CT head is unremarkable. Chronic dizziness ?PFO on 2D echo which could not be excluded. 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 History of Nicotine use Plan: MRI of the brain with and without is ordered by the ED team and I ordered MRI of the cervical spine are pending. He was agreement after talking to him about use of Akin for MRI. Pending vitamin B12 I started the patient on aspirin 81 mg daily as well as Lipitor 20 mg nightly for secondary stroke prophylaxis Continue neurochecks Cardiac monitoring No need for PT, OT and RATCHET SETTER since patient currently does not have any focal deficit Will defer the rest of the medical management to primary other specialist For DVT prophylaxis the patient is ambulatory. Plan discussed with the patient and primary team. Time with Patient: Less than 30
--- NOTE | 2024-09-02 15:07 | MR ---
EXAMINATION TYPE: MR brain/cspine wo/w DATE OF EXAM: 09/02/2024 2:18 PM COMPARISON: CT brain [phone]. CLINICAL INDICATION: Male, 29 years old with history of L. Face and arm numbness; PHH, Left face and arm numbness TECHNIQUE: Multi planar, multi sequence imaging was performed through the brain including: T1, T2, Inversion rec overy, Diffusion weighted imaging, and gradient echo imaging. No gadolinium was given. Multi planar, multi sequence imaging was performed utilizing: T1-weighted, T2-weighted, and turbo inv ersion recovery imaging of the cervical spine. IV Contrast: 9.5 mL Gadobutrol FINDINGS: The vasquez-white junctions, ventricular system, basal cisterns appear unremarkable. . Midline structu res show no abnormality. Diffusion-weighted imaging shows no evidence of restricted diffusion. The hutchinson sceptibility weighted images do not reveal any evidence for micro-hemorrhage. No abnormal postcontras t enhancement. The bone marrow signal is within normal limits. Paranasal sinuses and mastoid air cells: No significant paranasal sinus disease. Visualized orbits: Orbital contents are intact. Alignment: The cervical vertebral bodies have preserved heights. Alignment is within normal limits gi roland patient positioning. Bones: Bone signal is within normal limits. No abnormal bone marrow edema on inversion recovery seque nces. Cord: High T2 fluid seen extending through the spinal canal probably extending from C3 to C7 measurin g millimeter. The spinal cord is otherwise unremarkable with regards to their signal intensity and mo rphology. Discs: Intervertebral disc signal is maintained. C2-C3: No significant disc pathology. The spinal canal is patent. No neural foraminal stenosis. C3-C4: No significant disc pathology. The spinal canal is patent. No neural foraminal stenosis. C4-C5: No significant disc pathology. The spinal canal is patent. No neural foraminal stenosis. C5-C6: No significant disc pathology. The spinal canal is patent. No neural foraminal stenosis. C6-C7: No significant disc pathology. The spinal canal is patent. No neural foraminal stenosis. C7-T1: No significant disc pathology. The spinal canal is patent. No neural foraminal stenosis. Other: None. IMPRESSION: 1. No abnormal postcontrast enhancement. 2. Central cord 1mm syrinx. Extending from C3 to C7 3. No evidence for disc herniation or significant spinal canal stenosis. 4. No evidence of intracranial mass or acute/subacute infarct. [facility], , 09/02/2024 3:04 PM
--- NOTE | 2024-09-02 21:31 | P.PN ---
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 CT of the head that was done at [facility] did not show any significant abnormality. Patient denied any family history of premature coronary artery disease or carotid artery disease or prevascular disease in the family patient has a history of sciatica because of which he has some chronic numbness and tingling in lower extremities. Brain CT and chest x- ray are essentially within normal limits. Patient symptoms started on Friday resolved at this time. Patient still has on and off symptoms. Patient also has history of peripheral vertigo 09/02/2024 Patient continues with left facial numbness and left hand dexterity issues. brain/cervical MRI revel central canal 1 mm syrinx. Pending follow up with neurosurgeon at to decide if patient can f/u outpatient or needs tertiary care. Follow up with in the am still awaiting neurosurgeon to call. REVIEW OF SYSTEMS: All other systems are negative except those mentioned in the HPI PHYSICAL EXAMINATION: GENERAL: The patient is alert and oriented x3, not in any acute distress. Well developed, well nourished. HEENT: Pupils are round and equally reacting to light. EOMI. No scleral icterus. No conjunctival pallor. Normocephalic, atraumatic. No pharyngeal erythema. No thyromegaly. CARDIOVASCULAR: S1 and S2 present. No murmurs, rubs, or gallops. PULMONARY: Chest is clear to auscultation, no wheezing or crackles. ABDOMEN: Soft, nontender, nondistended, normoactive bowel sounds. No palpable organomegaly. MUSCULOSKELETAL: No joint swelling or deformity. EXTREMITIES: No cyanosis, clubbing, or pedal edema. NEUROLOGICAL: Gross neurological examination did not reveal any focal deficits. SKIN: No rashes. Assessment and plan -Symptoms of facial and left arm tingling numbness: likely from the cervical central cord syrinx. - Elevated hemoglobin/hematocrit secondary to hemoconcentration from dehydration or testosterone injections -Peripheral vertigo presently not symptomatic DVT prophylaxis: Early ambulation The impression and plan of care has been dictated by Ailyn Duron, Nurse Practitioner as directed. Dr. Keith MD I have performed a history and physical examination and medical decision making of this patient, discussed the same with the dictator, and agree with the dictators assessment and plan as written, documented as a scribe. Based on total visit time, I have performed more than 50% of this visit. Objective - Vital Signs Vital signs: Vital Signs Temp 97.6 F 09/02/24 19:01 Pulse 79 09/02/24 19:01 Resp 18 09/02/24 19:01 BP 132/75 09/02/24 19:01 Pulse Ox 98 09/02/24 19:01 FiO2 Intake & Output 09/02/24 09/02/24 09/03/24 06:59 18:59 06:59 Other: # Voids 1 3 - Labs CBC & Chem 7: 08/31/24 19:46 08/31/24 19:46 Labs: Abnormal Lab Results - Last 24 Hours (Table) 08/31/24 Range/Units 19:46 HDL Cholesterol 30.80 L (40.00-60.00) mg/dL Assessment and Plan Time with Patient: Less than 30
[2024-09-03 01:40] VITALS: RESP 16
[2024-09-03 07:49] VITALS: BP 141/76; PULSE 79; TEMP 98.5
--- NOTE | 2024-09-03 15:28 | P.PN ---
Subjective Progress Note Date: 09/03/24 I am following up with the patient and he feels well has some abnormal sensation over the left cheek is no other neurological issues. 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 Neurosurgery team was contacted [facility] by the primary team and they are notified that the syrinx would not explain his symptoms and no need for transfer or escalation of care and patient can follow- up with neurosurgery team outpatient if needed. Objective - Vital Signs Vital signs: Vital Signs Temp 98.5 F 09/03/24 07:00 Pulse 79 09/03/24 07:00 Resp 16 09/03/24 07:00 BP 141/76 09/03/24 07:00 Pulse Ox 98 09/03/24 07:00 FiO2 Intake & Output 09/02/24 09/03/24 09/03/24 18:59 06:59 18:59 Intake Total 118 Balance 118 Intake: Oral 118 Other: # Voids 3 2 - Exam GENERAL: The patient is lying in bed and is not in acute distress. NEUROLOGICAL: Higher mental function: The patient is awake, alert, oriented to self, place and time. Patient is following commands. No aphasia and no neglect. Cranial nerves: The pupils are round, equal and reactive to light and accommodation. Visual iglesias are full to confrontation throughout. Extraocular movement is intact no nystagmus is noted. Facial sensation is normal to touch throughout. The facial strength is normal throughout. Hearing is normal bilaterally to hand rub. Tongue is midline and moved [id number] without any difficulty. No dysarthria is noted. Shoulder shrug is normal bilaterally. Motor: The strength is 5 over 5 throughout. Normal tone and bulk. Cerebellum: Normal finger to nose heel to owens bilaterally. Sensation: Sensation is normal to touch throughout. Reflexes (right/left): 2+ throughout. Plantars are downgoing bilaterally. Some of the workup during this hospital visit consisted of: Hemoglobin is 18.0 and hematocrit is 51.1 I reviewed the rest of the lab workup JONNY is negative TSH is 2.610 Hemoglobin A1c is 5.2. CT of the head is reported as no acute intracranial process. I personally reviewed the CT and agree with the report. Routine EEG: Normal. 2D echo: Ventricular size and systolic function. Mild borderline concentric left ventricle hypertrophy. Cannot exclude a small shunt [id number] based on bubble study Carotid duplex is no hemodynamically significant stenosis bilaterally. MRI of the brain is reported as no abnormal postcontrast enhancement. No evidence of intracranial mass or acute/subacute infarct. I personally reviewed the MRI and I agree with the report. I also do not feel the MRI is suspicious for demyelinating disease. MRI of the cervical spine is reported as central cord 1 mm syrinx extending from C3-C7. No evidence of disc herniation or significant spinal canal stenosis. - Labs CBC & Chem 7: 08/31/24 19:46 08/31/24 19:46 Assessment and Plan Assessment: This is a 29-year-old gentleman who presents emergency department because of left facial numbness, with some issues with dexterity of left hand that is intermittent since this past Friday. Intermittent left facial numbness with some issues with dexterity of left hand: Unsure exact etiology. MRI of the brain is unremarkable. Patient has reported syrinx in the cervical spine that is 1 mm central from C3-C7 and neurosurgery over at [facility] stated that this would not explain his symptoms which I would agree. EEG is normal. CT head is unremarkable. There is no evidence of demonic disease on MRI of the brain or cervical spine. Chronic dizziness ?PFO on 2D echo which could not be excluded. 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 History of Nicotine use Plan: Continue aspirin 81 mg daily as well as Lipitor 20 mg nightly for secondary stroke prophylaxis Continue neurochecks Cardiac monitoring No need for PT, OT and COTTON [employer]ADER since patient currently does not have any focal deficit Will defer the rest of the medical management to primary other specialist For DVT prophylaxis the patient is ambulatory. Upon discharge recommend the patient to follow-up with the outpatient neurologist within 2 to 3 weeks. Also consider following up with the neurosurg arnulfo team if he has any further concerns about his Syrinx Plan discussed with the patient and primary team. There is no additional neurological workup. Will sign off. Please reconsult if needed. Time with Patient: Less than 30
--- NOTE | 2024-09-08 18:30 | P.DS ---
Providers Date of admission: 08/31/24 21:49 Expected date of discharge: 09/03/24 Attending physician: Brisa Metzger Consults: 08/31/24 21:49 Consult Physician Urgent Consulting Provider: Jeffry Bates Consult Reason/Comments: left sided weakness Do you want consulting provider notified?: Yes, Notify in am Primary care physician: Physician Nonstaff Hospital Course: Final Diagnosis -Symptoms of facial and left arm tingling numbness: from cervical radiculopathy - cervical central cord syrinx. - Elevated hemoglobin/hematocrit secondary to hemoconcentration from dehydration or testosterone injections -Peripheral vertigo presently not symptomatic Discharge Disposition Patient stable for discharge home. Patient to complete a Medrol Dosepak. Patient to follow-up with PCP regarding outpatient physical therapy. 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 CT of the head that was done at [facility] did not show any significant abnormality. Patient denied any family history of premature coronary artery disease or carotid artery disease or prevascular disease in the family patient has a history of sciatica because of which he has some chronic numbness and tingling in lower extremities. Brain CT and chest x- ray are essentially within normal limits. Patient symptoms started on Friday resolved at this time. Patient still has on and off symptoms. Patient also has history of peripheral vertigo. Patient continues with left facial numbness and left hand dexterity issues. brain/cervical MRI revel central canal 1 mm syrinx. Case was discussed with Dr. Burkett neurosurgeon out of [facility] and he felt that the patient's symptoms were unrelated to the syrinx. He recommended for patient to follow-up with him in the office. Patient was recommended to complete a Medrol Dosepak and to talk with his PCP regarding outpatient physical therapy. Please see medication reconciliation for a list of current medications. Thank you for allowing us to participate in the care of this patient. The impression and plan of care has been dictated by Ailyn Duron Nurse Practitioner as directed. Dr. Keith MD I have performed a history and physical examination and medical decision making of this patient, discussed the same with the dictator, and agree with the dictators assessment and plan as written, documented as a scribe. Based on total visit time, I have performed more than 50% of this visit. Patient Condition at Discharge: Good Plan - Discharge Summary Discharge Rx Participant: Yes New Discharge Prescriptions: New methylPREDNISolone Dose Pack [Medrol Dose Pack] 4 mg PO DIRECTED #21 tab Discharge Medication List methylPREDNISolone Dose Pack [Medrol Dose Pack] 4 mg PO DIRECTED #21 tab 09/03/24 [Rx] Follow up Appointment(s)/Referral(s): Nonstaff,Physician [Primary Care Provider] - 1-2 days Roger Liu MD [REFERRING] - 1 Week (Neurosurgery ) Activity/Diet/Wound Care/Special Instructions: Follow up with your family doctor regarding physical therapy Dr Liu can see you in the office to discuss the syrinx if you have further questions or concerns. Discharge Disposition: HOME SELF-CARE
== END 2024-09-03 11:30 | disposition home or self-care (01) ==
LOC: EC 18:02 → 6NMEDSUR 21:49
PROVIDERS: ADMIT Hospitalist; ATTEND Hospitalist
DX: M54.12 Radiculopathy, cervical region (principal); G95.0 Syringomyelia and syringobulbia; D75.1 Secondary polycythemia; E86.0 Dehydration; H81.399 Other peripheral vertigo, unspecified ear; Z87.891 Personal history of nicotine dependence
CPT/HCPCS: 99285; 36415; 95816; 93005; 93306; 80053; 80061; 84443; 82607; 82550; 82746; 84484; 85025; 85610; 85730; 86038; 83036; 71046; 93880; 70450; 70553; 72156; G0378 ×4; A9585